=== PATIENT | male | born 1985 | race Caucasian/White ===

== ENCOUNTER → 2018-08-17 | Outpatient (CLI) | payer SELFPAY ==
[~2018-08-17] MED LIST: AMBI10TA OR; HUMALOG SC; INSULANT SC
[2018-08-17 15:37] LABS: ALBUMIN 3.6 GM/DL (3.2-5.2); ALT/SGPT 13 U/L (12-78); BILIRUBIN,TOTAL 0.2 MG/DL (0.2-1.0); BLOOD UREA NITROGEN 39 MG/DL (7-18); CARBON DIOXIDE LEVEL 30 MEQ/L (21-32); CHLORIDE LEVEL 103 MEQ/L (98-107); CREATININE FOR GFR 1.41 MG/DL (0.70-1.30); GLOMERULAR FILTRATION RATE > 60.0 (>60); GLUCOSE, FASTING 237 MG/DL (70-100); SODIUM LEVEL 137 MEQ/L (136-145); TOTAL PROTEIN 6.5 GM/DL (6.4-8.2)
[2018-08-17 15:41] LABS: HEMATOCRIT 30.5 % (42.0-52.0); HEMOGLOBIN 10.2 g/dl (13.5-17.5); MEAN CORPUSCULAR HEMOGLOBIN 28.3 pg (27.0-33.0); MEAN CORPUSCULAR HGB CONC 33.4 g/dl (32.0-36.5); MEAN CORPUSCULAR VOLUME 84.7 fl (80.0-96.0); PLATELET COUNT, AUTOMATED 208 10^3/uL (150-450); WHITE BLOOD COUNT 7.2 10^3/uL (4.0-10.0)
[2018-08-17 17:10] LABS: CHLAMYDIA DNA AMPLIFICATION NEGATIVE (NEGATIVE); GC DNA AMPLIFICATION NEGATIVE (NEGATIVE)
[2018-08-18 10:16] LABS: HEPATITIS B SURFACE ANTIGEN NEGATIVE (NEGATIVE)
[2018-08-18 10:44] LABS: HIV 1&2 SCREEN CENTAUR NEGATIVE (NEGATIVE)
== END ==
LOC: M WUC 11:58
PROVIDERS: ATTEND Family Medicine
DX: F11.20 Opioid dependence, uncomplicated (principal)

== ENCOUNTER 2019-01-02 16:43 | Emergency (ER) | payer OTHER ==
[~2019-01-02] VITALS: Ht 198.1 cm; Wt 81.8 kg
[2019-01-02] MEDS ORDERED: LISI-542 (16:50)
[2019-01-02] MEDS ORDERED: BASA100I (16:50)
[2019-01-02] MEDS ORDERED: METH10CO PO (16:50)
[2019-01-02] MEDS ORDERED: ADME100I (16:50)
[2019-01-02] MEDS ORDERED: ONDANSETRON 4MG/2ML VIAL (J2405) IV ONE (17:30)
[2019-01-02] MEDS ORDERED: PANTOPRAZOLE 40MG INJ (PROTONIX) (C9113) IV ONE (17:30)
[2019-01-02] MEDS ORDERED: NS 1,000 ML IV ONE ×2 (17:30→19:15)
[2019-01-02 17:57] LABS: BASO # 0.1 10^3/uL (0.0-0.2); BASO % 0.4 % (0.0-1.0); EOS % 0.2 % (0.0-3.0); HEMOGLOBIN 10.1 g/dl (13.5-17.5); LYMPH # 0.9 10^3/uL (1.5-4.5); LYMPH % 7.6 % (24.0-44.0); MEAN CORPUSCULAR HEMOGLOBIN 30.2 pg (27.0-33.0); MEAN CORPUSCULAR HGB CONC 33.7 g/dl (32.0-36.5); MEAN CORPUSCULAR VOLUME 89.8 fl (80.0-96.0); MONO # 0.8 10^3/uL (0.0-0.8); MONO % 6.4 % (0.0-5.0); NEUTROPHILS # 10.3 10^3/uL (1.8-7.7); NEUTROPHILS % 85.1 % (36.0-66.0); PLATELET COUNT, AUTOMATED 250 10^3/uL (150-450); RED BLOOD COUNT 3.34 10^6/uL (4.30-6.10); WHITE BLOOD COUNT 12.1 10^3/uL (4.0-10.0)
[2019-01-02 18:17] LABS: INR 1.05; PROTHROMBIN TIME 13.8 SECONDS (12.1-14.4)
[2019-01-02 18:26] LABS: ALBUMIN 3.6 GM/DL (3.2-5.2); BILIRUBIN,DIRECT 0.1 MG/DL (0.0-0.2); BILIRUBIN,TOTAL 0.3 MG/DL (0.2-1.0); CALCIUM LEVEL 9.3 MG/DL (8.5-10.1); CREATININE FOR GFR 1.98 MG/DL (0.70-1.30); GLOMERULAR FILTRATION RATE 41.6 (>60); POTASSIUM SERUM 4.8 MEQ/L (3.5-5.1)
[2019-01-02 18:40] LABS: VENOUS BASE EXCESS -2.6 (-2.0-2.0); VENOUS O2 SATURATION 96.9 % (60.0-80.0); VENOUS PARTIAL PRESSURE CO2 43.2 mmHg (38.0-50.0); VENOUS PARTIAL PRESSURE O2 96.7 mmHg (30.0-50.0); VENOUS PH 7.345 UNITS (7.330-7.430); VENOUS STANDARD HCO3 22.3 MEQ/L; VENOUS TOTAL CO2 24.4 MEQ/L (24.0-28.0)
[2019-01-02] MEDS ORDERED: HumuLIN R (REGULAR) INSULIN (NovoLIN R) **100U/ML** PER UNIT IV ONE (18:45)
[2019-01-02 18:51] LABS: ACETONE/KETONE 26.81 MG/DL (<2.81)
[2019-01-02] MEDS ORDERED: PROT1TAB2 PO (20:00)
[2019-01-02] MEDS ORDERED: ONDA4TAB6 PO (20:00)
[2019-01-02 20:01] LABS: APPEARANCE, URINE CLEAR (CLEAR); BACTERIA, URINE AUTO NEGATIVE (NEGATIVE); BILIRUBIN, URINE AUTO NEGATIVE (NEGATIVE); BLOOD, URINE BLOOD 1+ (NEGATIVE); COLOR, URINE YELLOW (YELLOW); GLUCOSE, URINE (UA) AUTO 3+ mg/dL (NEGATIVE); KETONE, URINE AUTO 1+ mg/dL (NEGATIVE); LEUKOCYTE ESTERASE, URINE AUTO NEGATIVE (NEGATIVE); NITRITE, URINE AUTO NEGATIVE (NEGATIVE); PROTEIN, URINE AUTO 2+ mg/dL (NEGATIVE); RBC, URINE AUTO 3 /HPF (0-3); SPECIFIC GRAVITY URINE AUTO 1.016 (1.002-1.035); SQUAMOUS EPITHELIAL CELL UR AU 0 /HPF (0-6); UROBILINOGEN, URINE AUTO 0.2 mg/dL (0.0-2.0); WBC, URINE AUTO 0 /HPF (0-3)
[2019-01-02 20:12] VITALS: BP 138/67
== END 2019-01-02 20:25 | disposition home or self-care (01) ==
LOC: M ED 16:43
DX: R11.2 Nausea with vomiting, unspecified (principal); D64.9 Anemia, unspecified; E10.9 Type 1 diabetes mellitus without complications; E86.0 Dehydration; Z72.0 Tobacco use; Z79.4 Long term (current) use of insulin; Z79.899 Other long term (current) drug therapy
CPT/HCPCS: 80048; 80076; 81001; 82010; 82803; 83690; 85025; 85610; 85730; 86850; 86900; 86901; 96374; 96375; 99284; C9113; J2405

== ENCOUNTER 2019-01-09 19:52 | Emergency (ER) | payer OTHER ==
[~2019-01-09] VITALS: Ht 198.1 cm; Wt 84.1 kg
[~2019-01-09 19:52] MED LIST changes: +ADME100I; +BASA100I; +LISI-542; +METH10CO PO; +ONDA4TAB6 PO; +PROT1TAB2 PO
[2019-01-09] MEDS: ONDANSETRON 4 MG ORAL DISINTEGRATING TAB (Q0162 PER 1MG) PO ONE ×2 (20:34→21:05)
[2019-01-09] MEDS ORDERED: ONDANSETRON 4MG/2ML VIAL (J2405) IV ONE (20:45)
[2019-01-09 20:58] LABS: BASO # 0.1 10^3/uL (0.0-0.2); BASO % 0.8 % (0.0-1.0); EOS # 0.4 10^3/uL (0.0-0.50); EOS % 4.2 % (0.0-3.0); HEMATOCRIT 31.7 % (42.0-52.0); HEMOGLOBIN 10.4 g/dl (13.5-17.5); LYMPH # 1.4 10^3/uL (1.5-4.5); LYMPH % 16.8 % (24.0-44.0); MEAN CORPUSCULAR HEMOGLOBIN 29.3 pg (27.0-33.0); MEAN CORPUSCULAR HGB CONC 32.8 g/dl (32.0-36.5); MEAN CORPUSCULAR VOLUME 89.3 fl (80.0-96.0); MONO # 0.5 10^3/uL (0.0-0.8); MONO % 5.5 % (0.0-5.0); NEUTROPHILS # 6.1 10^3/uL (1.8-7.7); NEUTROPHILS % 72.5 % (36.0-66.0); PLATELET COUNT, AUTOMATED 217 10^3/uL (150-450); RED BLOOD COUNT 3.55 10^6/uL (4.30-6.10); WHITE BLOOD COUNT 8.4 10^3/uL (4.0-10.0)
[2019-01-09 21:27] LABS: ALBUMIN 3.2 GM/DL (3.2-5.2); ALT/SGPT 15 U/L (12-78); BILIRUBIN,DIRECT 0.1 MG/DL (0.0-0.2); BILIRUBIN,TOTAL 0.3 MG/DL (0.2-1.0); BLOOD UREA NITROGEN 23 MG/DL (7-18); CARBON DIOXIDE LEVEL 29 MEQ/L (21-32); CHLORIDE LEVEL 106 MEQ/L (98-107); CREATININE FOR GFR 1.14 MG/DL (0.70-1.30); GLOMERULAR FILTRATION RATE > 60.0 (>60); GLUCOSE, FASTING 247 MG/DL (70-100); LIPASE 95 U/L (73-393); POTASSIUM SERUM 5.9 MEQ/L (3.5-5.1); SODIUM LEVEL 139 MEQ/L (136-145); TOTAL PROTEIN 6.6 GM/DL (6.4-8.2)
[2019-01-09] MEDS ORDERED: NS 1,000 ML IV ONE (21:45)
[2019-01-09 22:44] VITALS: BP 144/85
== END 2019-01-09 22:48 | disposition home or self-care (01) ==
LOC: M ED 19:52
DX: E10.40 Type 1 diabetes mellitus with diabetic neuropathy, unspecified (principal); R11.2 Nausea with vomiting, unspecified; D64.9 Anemia, unspecified; K27.9 Peptic ulcer, site unspecified, unspecified as acute or chronic, without hemorrhage or perforation; Z79.4 Long term (current) use of insulin; Z87.448 Personal history of other diseases of urinary system
CPT/HCPCS: 80048; 80076; 83690; 85025; 96374; 99284; J2405

== ENCOUNTER 2019-02-14 02:41 | Inpatient (IN) | payer OTHER ==
[~2019-02-14] VITALS: Ht 198.1 cm; Wt 81.9 kg
[2019-02-14] VITALS (15 sets, daily range): BP systolic 114–154; BP diastolic 60–89
[~2019-02-14 02:41] MED LIST changes: -ADME100I; +ADME100I SC; -BASA100I; +BASA100I PO; -LISI-542; +LISI-542 PO
[2019-02-14 04:38] LABS: BASO # 0.1 10^3/uL (0.0-0.2); BASO % 0.4 % (0.0-1.0); EOS % 0.2 % (0.0-3.0); HEMATOCRIT 29.4 % (42.0-52.0); HEMOGLOBIN 9.1 g/dl (13.5-17.5); LYMPH # 1.1 10^3/uL (1.5-4.5); MEAN CORPUSCULAR HEMOGLOBIN 29.1 pg (27.0-33.0); MEAN CORPUSCULAR VOLUME 93.9 fl (80.0-96.0); MONO % 10.3 % (0.0-5.0); NEUTROPHILS # 18.8 10^3/uL (1.8-7.7); PLATELET COUNT, AUTOMATED 208 10^3/uL (150-450); RED BLOOD COUNT 3.13 10^6/uL (4.30-6.10); WHITE BLOOD COUNT 22.6 10^3/uL (4.0-10.0)
[2019-02-14] MEDS ORDERED: NS 1,000 ML IV ONE (04:45)
[2019-02-14] MEDS ORDERED: HumuLIN R (REGULAR) INSULIN (NovoLIN R) **100U/ML** PER UNIT IV ONE (04:45)
[2019-02-14] MEDS ORDERED: SODIUM BICARBONATE 8.4% INJ 50 ML SYRINGE As Ordered ONE (04:51)
[2019-02-14 04:54] LABS: INR 1.12; PROTHROMBIN TIME 14.1 SECONDS (11.8-14.0)
[2019-02-14] MEDS ORDERED: METOPROLOL 5 MG/5 ML VIAL IV STA (04:55)
[2019-02-14] MEDS ORDERED: METOPROLOL 5 MG/5 ML VIAL As Ordered ONE (04:56)
[2019-02-14 04:57] LABS: MONO # 2.3 10^3/uL (0.0-0.8)
[2019-02-14] MEDS ORDERED: CALCIUM GLUCONATE 1,000MG/10ML VIAL (100MG/ML) (J0610) As Ordered ONE (04:58)
[2019-02-14 04:59] LABS: BLOOD UREA NITROGEN 39 MG/DL (7-18); CARBON DIOXIDE LEVEL 16 MEQ/L (21-32); CHLORIDE LEVEL 96 MEQ/L (98-107); CK-MB VALUE MASS 1.9 NG/ML (<3.6); CPK CREATINE PHOSPHOKINASE 201 U/L (39-308); CREATININE FOR GFR 2.07 MG/DL (0.70-1.30); GLOMERULAR FILTRATION RATE 39.6 (>60); GLUCOSE, FASTING 661 MG/DL (70-100); MB/CK RELATIVE INDEX 0.95 (< OR =4); POTASSIUM SERUM 7.5 MEQ/L (3.5-5.1); SODIUM LEVEL 132 MEQ/L (136-145); TROPONIN I < 0.02 NG/ML (< 0.10)
[2019-02-14] MEDS ORDERED: INSULIN IV RATE CHANGE DOCUMENTATION ML/HR XX SCH ×2 (05:15→05:45)
[2019-02-14] MEDS ORDERED: INSULIN HUMAN REGULAR 100 UNITS in NS 99 ML IV SCH ×4 (05:15→14:00)
[2019-02-14] MEDS ORDERED: ONDA4TAB6 PO (05:24)
[2019-02-14] MEDS ORDERED: PANT40TA3 PO (05:24)
[2019-02-14] MEDS ORDERED: PHARMACY COMMENT (05:25)
[2019-02-14] MEDS ORDERED: MAALOX 30 ML SUSP *UDC PO PRN (05:45)
[2019-02-14] MEDS ORDERED: SODIUM BICARBONATE 8.4% INJ 50 ML SYRINGE IV SCH (05:45)
[2019-02-14] MEDS ORDERED: MOM 30ML SUSPENSION UDC PO PRN (05:45)
[2019-02-14] MEDS ORDERED: ZOSYN 3.375 GM VIAL (J2543) As Ordered ONE (05:48)
[2019-02-14] MEDS: NS 1,000 ML IV SCH ×2 (05:54→08:58)
--- NOTE | 2019-02-14 05:56 | ECGEPIP ---
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
[2019-02-14] MEDS: PIPERACILLIN/TAZOBACTAM SOD 3.375 GM in D5W MINI-BAG PLUS 50 ML IV SCH ×3 (05:58→17:50)
--- NOTE | 2019-02-14 06:02 | ECGEPIP ---
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
--- NOTE | 2019-02-14 06:10 | HPEPDOC ---
General Date of Admission 02/14/19 Date of Service: Feb 14, 2019 Attending Physician: FADIA LEE MD Chief Complaint The patient is a 33-year-old male admitted with a reason for visit of chest pain . Source: RN/MD Exam Limitations: Clinical conditions Timing/Duration: Unsure Severity: Other (unsure) Associated Symptoms: Nausea, Other (chest pain) History of Present Illness 33 years old white male with past medical history of insulin-dependent diabetes mellitus, also history of opiate addiction and methadone presented to [facility] with chief complaint of chest pain, nausea and vomiting. Patient was agitated, had tremors tachycardic. He was seen there, but just been given to 3 L of fluid, but patient decided to leave AMA and come here for this. He was not satisfied with the care. Patient right now is lethargic, unable to provide me history. He drifts back to sleep only arousable with with the tactile stimuli. I'm unable to obtain history, social history was obtained from ED and EMR. Home Medications Scheduled Insulin Glargine,Hum.rec.anlog (Basaglar Kwikpen U-100) 100 Unit/1 Ml Insuln.pen, 14 UNITS PO QHS, (Reported) Insulin Lispro (Admelog) 100 Unit/1 Ml Vial, 1 DOSE SC WM, (Reported) PER SLIDING SCALE Lisinopril (Lisinopril) 5 Mg Tablet, 5 MG PO DAILY, (Reported) Methadone HCl (Methadone HCl) 10 Mg/1 Ml Oral.conc, 115 MG PO DAILY, (Reported) Pantoprazole Sodium (Pantoprazole Sodium) 40 Mg Tablet.dr, 40 MG PO DAILY, (Reported) Scheduled PRN Ondansetron (Ondansetron Odt) 4 Mg Tab.rapdis, 4 MG PO Q6H PRN for NAUSEA OR VOMITING, (Reported) Miscellaneous Medications [Pharmacy Comment] , (Reported) VERIFIED ALL MEDICATIONS WITH PHARMACY EXCEPT METHADONE Allergies Coded Allergies: No Known Allergies (Verified , 10/07/11) Past Medical History Medical History Diabetes mellitus padded addiction and methadone, diabetic neuropathy, gastroparesis, status post silent pilonidal cyst removal, status post appendectomy Surgical History Status post pilonidal cyst removal, status post appendectomy Family History Significant Family History: Unable to assess Social History * Smoker: other (unable to obtained history) Alcohol: other (, unable to obtained history) Drugs: other (unable History obtained history) A-FIB/CHADSVASC A-FIB History Current/History of A-Fib/PAF?: No Review of Systems Constitutional: Reports: Other (unable to obtained review of system is better as patient is very lethargic secondary to DKA) Physical Examination General Exam: Positive: Other (, lethargic response to act Leon stimuli, but drifts back to sleep) Eye Exam: Positive: Conjunctiva & lids normal ENT Exam: Positive: Atraumatic, Mucous membr. moist/pink Neck Exam: Positive: Supple Chest Exam: Positive: Clear to auscultation, Normal air movement Heart Exam: Positive: Tachycardic, Normal S1, Normal S2 Telemetry: Positive: Tachycardia Abdomen Exam: Positive: Normal bowel sounds, Soft Extremity Exam: Positive: Normal pulses Skin Exam: Positive: Other skin issue (, dry, and warm) Neuro Exam: Positive: Other (. Moves all extremities. No focal motor sensory motor facet noted) Psych Exam: Positive: Other (able to examine) Vital Signs Vital Signs Date Time Temp Pulse Resp B/P (MAP) Pulse Ox O2 Delivery O2 Flow Rate FiO2 02/14/19 05:35 116/59 (78) 02/14/19 05:25 109 18 97 02/14/19 05:22 99.8 02/14/19 05:10 Room Air Laboratory Data Labs 24H Laboratory Tests 2 02/14/19 04:22: Immature Granulocyte % (Auto) 1.1, White Blood Count 22.6H, Red Blood Count 3.13L, Hemoglobin 9.1L, Hematocrit 29.4L, Mean Corpuscular Volume 93.9, Mean Corpuscular Hemoglobin 29.1, Mean Corpuscular Hemoglobin Concent 31.0L, Red Cell Distribution Width 13.1, Platelet Count 208, Neutrophils (%) (Auto) 83.0H, Lymphocytes (%) (Auto) 5.0L, Monocytes (%) (Auto) 10.3H, Eosinophils (%) (Auto) 0.2, Basophils (%) (Auto) 0.4, Neutrophils # (Auto) 18.8H, Lymphocytes # (Auto) 1.1L, Monocytes # (Auto) 2.3H, Eosinophils # (Auto) 0.0, Basophils # (Auto) 0.1, Nucleated Red Blood Cells % (auto) 0.0, Prothrombin Time 14.1H, Prothromb Time International Ratio 1.12, Activated Partial Thromboplast Time 27.0, Anion Gap 20H, Glomerular Filtration Rate 39.6L, Blood Urea Nitrogen 39H, Creatinine 2.07H, Sodium Level 132L, Potassium Level 7.5*H, Chloride Level 96L, Carbon Dioxide Level 16L, Calcium Level 10.0, Total Creatine Kinase 201, Creatine Kinase MB 1.9, Creatine Kinase MB Relative Index 0.95, Troponin I < 0.02, B- Hydroxybutyrate 28.30H 02/14/19 04:59: POC Glucose (Misc Panel) > 700*H, POC Sodium (Misc Panel) 130L, POC Potassium (Misc Panel) 7.0*H, POC Chloride (Misc Panel) 99, POC Total CO2 (Misc Panel) 17.0L, POC Blood Urea Nitrogen (Misc Panel 36H, POC Ionized Calcium (Misc Panel) 4.4L, POC Creatinine (Misc Panel) 1.6H, POC Hematocrit (Misc Panel) 26.0L CBC/BMP Laboratory Tests 02/14/19 04:22 Red Blood Count 3.13 L, Mean Corpuscular Volume 93.9, Mean Corpuscular Hemoglobin 29.1, Mean Corpuscular Hemoglobin Concent 31.0 L, Red Cell Distribution Width 13.1, Neutrophils (%) (Auto) 83.0 H, Lymphocytes (%) (Auto) 5.0 L, Monocytes (%) (Auto) 10.3 H, Eosinophils (%) (Auto) 0.2, Basophils (%) (Auto) 0.4, Neutrophils # (Auto) 18.8 H, Lymphocytes # (Auto) 1.1 L, Monocytes # (Auto) 2.3 H, Eosinophils # (Auto) 0.0, Basophils # (Auto) 0.1, Calcium Level 10.0, Total Creatine Kinase 201 Problems (1) DKA (diabetic ketoacidoses) Status: Acute Problem Text: 33 years old white male with past medical history of diabetes mellitus type 1, had presented to [facility] with chief complaints of tremors, tachycardia, nausea, vomiting, chest pain, but he decided to sign AMA and came here again. He was found to found to be any DKA with beta hydroxy more than 28, with positive widened anion gap and a high serum glucose level. Patient also was found to have a WBC count of 22,000 and his potassium is 7.5 as well Patient is being admitted to ICU with DKA. Hyperkalemia secondary to DKA, possible sepsis, most likely urinary in origin. UA is not available at the present time, but chest x-ray is clear. There is no pneumonia. EKG showed sinus tachycardia with TED peaking in edition in initial EKG EKG and chest x-ray were personally reviewed by me Admitted to medical ICU with telemetry IV fluids normal saline at 250 mL per hour Will change IV fluids. Once his blood sugar trending down Also supplement the electrolytes as needed including potassium and phosphate Insulin infusion as per protocol in order , Bicarbonate 100 mg IV 1 given Zosyn 3.375 mg IV every 6 hours Zofran 4 mg IV every 4 hours when necessary BNP, magnesium and phosphate levels every 4 hours Vital signs every 4 hours Strict I and O's Nothing by mouth DVT prophylaxis with Lovenox Activity bed rest with bathroom privileges (2) Sepsis Status: Acute Problem Text: Patient. As affected areas of sepsis secondary to tachypnea, tachycardia and elevated WBC count Chest x-ray is clear, but most likely source could be urinary but unfortunately UA is still pending Please follow urine analysis. Once is available Urine culturesblood cultures have been requested Start Zosyn 3.375 mg IV every 6 hours his empiric antibiotic treatment Further on pending blood cultures and urine culture and UA. Study (3) Hyperkalemia Status: Acute Problem Text: Hyperkalemia, most likely secondary to DKA, will not try to reverse it as most likely will go down with the blood sugar as patient is already on an insulin drip BNP every 4 hours has been ordered. EKG shows normal sinus rhythm, no acute changes on the repeat EKG (4) Dehydration Status: Acute Problem Text: Dehydration, most likely secondary to most probably secondary to volume loss secondary to DKA IV hydration with normal saline 250 mL per hour IV fluids will be changed once patient. Blood sugar starts trending down (5) RAMOS (acute kidney injury) Status: Acute Problem Text: Most likely secondary to DKA Monitor BUN/creatinine Repeat BNP in 4 hours (6) Anemia Status: Acute Problem Text: History of chronic anemia of unknown etiology The monitoring his hemoglobin and hematocrit while he is admitted to the hospital Outpatient records to further evaluate the workup done as an outpatient for his anemia (7) Diabetic gastroparesis Status: Chronic (8) Diabetic neuropathy Status: Chronic Plan / VTE VTE Prophylaxis Ordered?: Yes FADIA LEE MD Feb 14, 2019 06:10
--- NOTE | 2019-02-14 07:54 | REP ---
Portable chest, 04:25 a.m., single AP view with the patient upright: Comparison is 10/07/2011. The lung menezes are clear. The cardiac size is normal. The huong, mediastinum, and skeletal structures are unremarkable. Impression: Negative portable chest. There is no interval change. Electronically Signed by Galdino Garcia MD 02/14/2019 07:26 A
[2019-02-14] MEDS: PANTOPRAZOLE 40MG INJ (PROTONIX) (C9113) IV SCH (08:25)
[2019-02-14] MEDS: ACETAMINOPHEN TAB 650MG DOSE (2X325MG) PO PRN ×2 (08:57→21:07)
[2019-02-14] MEDS: DOCUSATE SODIUM 100 MG CAP PO SCH ×2 (09:00→20:08)
[2019-02-14] MEDS: ENOXAPARIN 40 MG/0.4 ML SYRINGE (J1650) SC SCH (09:00)
[2019-02-14] MEDS: LISINOPRIL 5 MG TAB PO SCH (09:00)
[2019-02-14] MEDS: INSULIN IV RATE CHANGE DOCUMENTATION ML/HR XX SCH ×3 (09:01→21:12)
[2019-02-14] MEDS: D5W/0.45% SODIUM CHLORIDE 1,000 ML IV SCH ×2 (12:13→20:08)
[2019-02-14] MEDS ORDERED: CALCIUM CHLORIDE 10% 1 GM/10 ML SYR ONE (14:27)
[2019-02-14 15:00] LABS: CALCIUM LEVEL 9.7 MG/DL (8.5-10.1); CREATININE FOR GFR 1.54 MG/DL (0.70-1.30); GLOMERULAR FILTRATION RATE 55.7 (>60); PHOSPHORUS LEVEL 3.8 MG/DL (2.5-4.9); POTASSIUM SERUM 4.8 MEQ/L (3.5-5.1)
[2019-02-14] MEDS: ONDANSETRON 4MG/2ML VIAL (J2405) IV PRN (15:29)
[2019-02-14 16:05] LABS: VENOUS BASE EXCESS 0.2 (-2.0-2.0); VENOUS HCO3 24.6 MEQ/L (23.0-27.0); VENOUS O2 SATURATION 98.9 % (60.0-80.0); VENOUS PARTIAL PRESSURE CO2 38.5 mmHg (38.0-50.0); VENOUS PARTIAL PRESSURE O2 185.9 mmHg (30.0-50.0); VENOUS PH 7.423 UNITS (7.330-7.430); VENOUS STANDARD HCO3 24.7 MEQ/L; VENOUS TOTAL CO2 25.8 MEQ/L (24.0-28.0)
--- NOTE | 2019-02-14 16:17 | IPNPDOC ---
Text Note Date of Service The patient was seen on 02/14/19. NOTE Pt seen and examined at bedside. Patient not feeling well complaining of nausea, vomiting. Denies fevers, chills, chest pain, difficulty breathing, abdominal pain, leg pain or swelling. potassium down to 4.8 from 7.5. AGAP closed. Creatinine 1.54 from 2.07. laying in bed, NAD, uncomfortable appearing, family at bedside PERRL, EOMI, poor dentition with many teeth missing RRR, nl s1/2 +systolic murmur CTA b/l no w/r/r soft, mild TTP, ND intact distal pulses, no edema A/P: 33 y/o m with DKA #DKA Admitted to medical ICU with telemetry IV fluids d5 1/2NS at 125 mL per hour Also supplement the electrolytes as needed including potassium and phosphate Insulin infusion as per protocol in order s/p Bicarbonate 100 mg IV 1 given Zosyn 3.375 mg IV every 6 hours Zofran 4 mg IV every 4 hours when necessary BMP, magnesium and phosphate levels every 4 hours Vital signs every 4 hours Strict I and O's Nothing by mouth DVT prophylaxis with Lovenox Activity bed rest with bathroom privileges #Sepsis UA clear with no e/o infection CXR clear with no e/o infection Blood cultures pending cont. Zosyn 3.375 mg IV every 6 hours for empiric antibiotic treatment with plan to stop if blood cultures [id number] #Hyperkalemia - RESOLVED -will cont. to trend BMP for K #Dehydration IV hydration with D5 1/2NS @125 mL per hour #RAMOS (acute kidney injury) Monitor BUN/creatinine currently improving Repeat BMP q4 hours #Anemia The monitoring his hemoglobin and hematocrit while he is admitted to the hospital Outpatient records to further evaluate the workup done as an outpatient for his anemia #Diabetic gastroparesis -will cont. to monitor #Diabetic neuropathy -will cont to monitor #chronic methadone use -pt follows at [facility] for chronic methadone maintenance -will confirm dose with [facility] (per pt he takes 125mg daily but didn't have his methadone card) DVT PPX: lovenox Disposition: currently requiring ICU level care Critical care time spent: 25min in additional to any other critical care time documented VS,Fishbone, I+O VS, Fishbone, I+O Laboratory Tests 02/14/19 04:22 Red Blood Count 3.13 L, Mean Corpuscular Volume 93.9, Mean Corpuscular Hemoglobin 29.1, Mean Corpuscular Hemoglobin Concent 31.0 L, Red Cell Distribution Width 13.1, Neutrophils (%) (Auto) 83.0 H, Lymphocytes (%) (Auto) 5.0 L, Monocytes (%) (Auto) 10.3 H, Eosinophils (%) (Auto) 0.2, Basophils (%) (Auto) 0.4, Neutrophils # (Auto) 18.8 H, Lymphocytes # (Auto) 1.1 L, Monocytes # (Auto) 2.3 H, Eosinophils # (Auto) 0.0, Basophils # (Auto) 0.1, Calcium Level 10.0, Total Creatine Kinase 201 02/14/19 13:19 Calcium Level 9.7 Vital Signs Date Time Temp Pulse Resp B/P (MAP) Pulse Ox O2 Delivery O2 Flow Rate FiO2 02/14/19 13:00 89 138/70 (92) 98 02/14/19 12:00 100.0 12 02/14/19 09:45 Room Air JAZMINE ANN MD Feb 14, 2019 16:17
[2019-02-14 18:06] LABS: VENOUS BASE EXCESS 0.9 (-2.0-2.0); VENOUS HCO3 25.1 MEQ/L (23.0-27.0); VENOUS O2 SATURATION 98.9 % (60.0-80.0); VENOUS PARTIAL PRESSURE CO2 38.2 mmHg (38.0-50.0); VENOUS PARTIAL PRESSURE O2 179.5 mmHg (30.0-50.0); VENOUS PH 7.435 UNITS (7.330-7.430); VENOUS STANDARD HCO3 25.3 MEQ/L; VENOUS TOTAL CO2 26.2 MEQ/L (24.0-28.0)
[2019-02-14 18:34] LABS: CALCIUM LEVEL 9.6 MG/DL (8.5-10.1); CREATININE FOR GFR 1.48 MG/DL (0.70-1.30); GLOMERULAR FILTRATION RATE 58.3 (>60); PHOSPHORUS LEVEL 3.9 MG/DL (2.5-4.9); POTASSIUM SERUM 4.7 MEQ/L (3.5-5.1)
[2019-02-14] MEDS: HumaLOG INSULIN (NovoLOG) PER UNIT SC SCH (21:00)
[2019-02-14] MEDS ORDERED: GLUCAGON FOR INJ 1 MG VIAL (J1610) SC PRN (21:00)
[2019-02-14] MEDS ORDERED: GLUCOSE 4 GM CHEW TABLET PO PRN (21:00)
[2019-02-14] MEDS ORDERED: DEXTROSE 50% 50 ML SYRINGE IV PRN (21:00)
[2019-02-14] MEDS: LEVEMIR (INSULIN DETEMIR) 1 UNITS/0.01ML SC SCH (21:05)
[2019-02-14 21:48] LABS: VENOUS BASE EXCESS -0.3 (-2.0-2.0); VENOUS HCO3 23.8 MEQ/L (23.0-27.0); VENOUS O2 SATURATION 99.1 % (60.0-80.0); VENOUS PARTIAL PRESSURE CO2 36.6 mmHg (38.0-50.0); VENOUS PARTIAL PRESSURE O2 209.4 mmHg (30.0-50.0); VENOUS PH 7.431 UNITS (7.330-7.430); VENOUS STANDARD HCO3 24.3 MEQ/L; VENOUS TOTAL CO2 24.9 MEQ/L (24.0-28.0)
[2019-02-14 22:03] LABS: CALCIUM LEVEL 8.8 MG/DL (8.5-10.1); CREATININE FOR GFR 1.59 MG/DL (0.70-1.30); GLOMERULAR FILTRATION RATE 53.6 (>60); PHOSPHORUS LEVEL 3.4 MG/DL (2.5-4.9); POTASSIUM SERUM 4.3 MEQ/L (3.5-5.1)
[2019-02-15] VITALS (7 sets, daily range): BP systolic 142–175; BP diastolic 78–96
[2019-02-15] MEDS: PIPERACILLIN/TAZOBACTAM SOD 3.375 GM in D5W MINI-BAG PLUS 50 ML IV SCH ×5 (00:38→23:40)
[2019-02-15] MEDS: ONDANSETRON 4MG/2ML VIAL (J2405) IV PRN ×4 (01:00→15:47)
[2019-02-15] MEDS: ACETAMINOPHEN TAB 650MG DOSE (2X325MG) PO PRN ×3 (04:53→21:36)
[2019-02-15 05:02] LABS: HEMATOCRIT 25.6 % (42.0-52.0); HEMOGLOBIN 8.4 g/dl (13.5-17.5); MEAN CORPUSCULAR HEMOGLOBIN 28.8 pg (27.0-33.0); MEAN CORPUSCULAR HGB CONC 32.8 g/dl (32.0-36.5); MEAN CORPUSCULAR VOLUME 87.7 fl (80.0-96.0); PLATELET COUNT, AUTOMATED 183 10^3/uL (150-450); RED BLOOD COUNT 2.92 10^6/uL (4.30-6.10); WHITE BLOOD COUNT 13.1 10^3/uL (4.0-10.0)
[2019-02-15 05:27] LABS: ALBUMIN 2.9 GM/DL (3.2-5.2); BILIRUBIN,TOTAL 0.4 MG/DL (0.2-1.0); CALCIUM LEVEL 8.8 MG/DL (8.5-10.1); CREATININE FOR GFR 1.46 MG/DL (0.70-1.30); GLOMERULAR FILTRATION RATE 59.2 (>60); MAGNESIUM LEVEL 1.7 MG/DL (1.8-2.4); PHOSPHORUS LEVEL 3.8 MG/DL (2.5-4.9); POTASSIUM SERUM 4.1 MEQ/L (3.5-5.1); TOTAL PROTEIN 6.1 GM/DL (6.4-8.2)
[2019-02-15] MEDS: HumaLOG INSULIN (NovoLOG) PER UNIT SC SCH ×4 (07:30→20:36)
[2019-02-15] MEDS ORDERED: MAG SULF 1GM/100ML (MAG RUN) 1 GM in APPROPRIATE DILUENT 1 EA IV ONE (08:00)
[2019-02-15] MEDS: ENOXAPARIN 40 MG/0.4 ML SYRINGE (J1650) SC SCH (08:13)
[2019-02-15] MEDS: PANTOPRAZOLE 40MG INJ (PROTONIX) (C9113) IV SCH (08:13)
[2019-02-15] MEDS: DOCUSATE SODIUM 100 MG CAP PO SCH ×2 (09:00→20:37)
--- NOTE | 2019-02-15 10:26 | IPNPDOC ---
Subjective Date Seen The patient was seen on 02/15/19. Subjective Chief Complaint/HPI Follow-up DKA Events since last encounter Patient seen and examined at bedside. Patient complains of nausea, vomiting, ab pain, feeling tired and generally unwell. Patient denies fevers, chills, chest pain, difficulty breathing, leg pain or swelling. Patient did not tolerate diet last night, but will try again this morning. Objective Physical Examination General Exam: Positive: Alert, Cooperative, No Acute Distress Chest Exam: Positive: Clear to auscultation, Normal air movement Heart Exam: Positive: Rate Normal, Normal S1, Normal S2 Abdomen Exam: Positive: Normal bowel sounds, Soft, Tenderness (minimal tenderness to deep palpation) Extremity Exam: Positive: Normal pulses; Negative: Edema Skin Exam: Positive: Other skin issue (, dry, and warm); Negative: Rash, Breakdown Neuro Exam: Positive: Other (no focal deficits appreciated) Psych Exam: Positive: Mental status NL, Mood NL, Oriented x 3 Assessment /Plan Assessment 33 years old white male with past medical history of insulin-dependent diabetes mellitus type I, also history of opiate addiction and methadone presented initially to OSH with N/V and chest pain. Pt received 3L and then left AMA and presented to [facility] with lethargy. Found to be in DKA with AGAP 20, +ketones. Pt started on insulin drip per DKA protocal. Pt also started on zosyn for concern for infection given elevated WBC, tachycardia. CXR clear as well as clear UA. Blood cultures no growth to date. Currently attempting to transition pt to Sub Q insulin but pt unable to tolerate PO intake currently. On presentation pt also with elevated K to 7.5 which resolved with fluids and insulin. Problems (1) DKA (diabetic ketoacidoses) Status: Acute Problem Text: Admitted to medical ICU with telemetry IV fluids d5 1/2NS at 125 mL per hour Also supplement the electrolytes as needed including potassium and phosphate Insulin infusion as per protocol in order will attempt to transition off insulin drip once pt tolerating PO intake s/p Bicarbonate 100 mg IV 1 given cont. Zosyn 3.375 mg IV every 6 hours as pt febrile today Zofran 4 mg IV every 4 hours when necessary BMP, magnesium and phosphate levels every 4 hours Vital signs every 4 hours Strict I and O's advance diet as tolerated DVT prophylaxis with Lovenox Activity bed rest with bathroom privileges (2) Sepsis Status: Acute Problem Text: UA clear with no e/o infection CXR clear with no e/o infection Blood cultures NGTD cont. Zosyn 3.375 mg IV every 6 hours for empiric antibiotic treatment with plan to stop if blood cultures [id number] will cont. to monitor as pt spiked fever today (3) Hyperkalemia Status: Resolved Problem Text: RESOLVED will cont. to monitor (4) Dehydration Status: Acute Problem Text: Dehydration, most likely secondary to most probably secondary to volume loss secondary to DKA IV hydration with normal saline 250 mL per hour IV fluids will be changed once patient. Blood sugar starts trending down (5) RAMOS (acute kidney injury) Status: Acute Problem Text: Most likely secondary to DKA Monitor BUN/creatinine Repeat BNP in 4 hours Creatinine improving but may be an element of underlying diabetic nephropathy (6) Anemia Status: Acute Problem Text: History of chronic anemia of unknown etiology The monitoring his hemoglobin and hematocrit while he is admitted to the hospital (7) Diabetic gastroparesis Status: Chronic Problem Text: -will cont. to monitor (8) Diabetic neuropathy Status: Chronic Problem Text: will cont. to monitor Plan/VTE VTE Prophylaxis Ordered?: Yes Disposition pending clinical improvement and pt tolerating PO diet VS, I&O, 24H, Fishbone Vital Signs/I&O Vital Signs Date Time Temp Pulse Resp B/P (MAP) Pulse Ox O2 Delivery O2 Flow Rate FiO2 02/15/19 08:00 101.0 90 18 161/79 (106) 99 02/14/19 09:45 Room Air I&O- Last 24 Hours up to 6 AM 02/15/19 05:59 Intake Total 2839.7 ml Output Total 1800 ml Balance 1039.7 ml Laboratory Data 24H LABS Laboratory Tests 2 02/14/19 10:23: Bedside Glucose (Misc Panel) 150H 02/14/19 11:05: Bedside Glucose (Misc Panel) 125H 02/14/19 12:10: Bedside Glucose (Misc Panel) 128H 02/14/19 13:19: Anion Gap 6L, Glomerular Filtration Rate 55.7L, Blood Urea Nitrogen 34H, Creatinine 1.54H, Sodium Level 143#, Potassium Level 4.8#, Chloride Level 109H, Carbon Dioxide Level 28, Calcium Level 9.7, Phosphorus Level 3.8 7/29/19 13:20: Bedside Glucose (Misc Panel) 130H 02/14/19 14:13: Bedside Glucose (Misc Panel) 157H 02/14/19 15:32: Bedside Glucose (Misc Panel) 155H 02/14/19 15:55: Blood Gas Puncture Site UNKNOWN, Blood Gas Bicarbonate Standard 24.7, Venous Blood pH 7.423, Venous Blood Partial Pressure CO2 38.5, Venous Blood Partial Pressure O2 185.9H, Venous Blood Total Carbon Dioxide 25.8, Venous Blood HCO3 24.6, Venous Blood Oxygen Saturation 98.9H, Venous Blood Base Excess 0.2, Osmolality 308H 02/14/19 16:14: Bedside Glucose (Misc Panel) 157H 02/14/19 17:04: Bedside Glucose (Misc Panel) 149H 02/14/19 17:59: Bedside Glucose (Misc Panel) 148H 02/14/19 18:00: Blood Gas Bicarbonate Standard 25.3, Venous Blood pH 7.435H, Venous Blood Partial Pressure CO2 38.2, Venous Blood Partial Pressure O2 179.5H, Venous Blood Total Carbon Dioxide 26.2, Venous Blood HCO3 25.1, Venous Blood Oxygen Saturat ion 98.9H, Venous Blood Base Excess 0.9, Anion Gap 8, Glomerular Filtration Rate 58.3L, Blood Urea Nitrogen 29H, Creatinine 1.48H, Sodium Level 144, Potassium Level 4.7, Chloride Level 110H, Carbon Dioxide Level 26, Calcium Level 9.6, Phosphorus Level 3.9 02/14/19 19:12: Bedside Glucose (Misc Panel) 180H 02/14/19 20:04: Bedside Glucose (Misc Panel) 209H 02/14/19 21:07: Bedside Glucose (Misc Panel) 165H 02/14/19 21:30: Blood Gas Bicarbonate Standard 24.3, Venous Blood pH 7.431H, Venous Blood Partial Pressure CO2 36.6L, Venous Blood Partial Pressure O2 209.4H, Venous Blood Total Carbon Dioxide 24.9, Venous Blood HCO3 23.8, Venous Blood Oxygen Saturation 99.1H, Venous Blood Base Excess -0.3, Anion Gap 6L, Glomerular Filtration Rate 53.6L, Osmolality 299H, Blood Urea Nitrogen 29H, Creatinine 1.59H, Sodium Level 144, Potassium Level 4.3, Chloride Level 110H, Carbon Dioxide Level 28, Calcium Level 8.8, Phosphorus Level 3.4 02/15/19 00:43: Bedside Glucose (Misc Panel) 95 02/15/19 04:45: Nucleated Red Blood Cells % (auto) 0.0, Anion Gap 5L, Glomerular Filtration Rate 59.2L, Osmolality 298H, Blood Urea Nitrogen 24H, Creatinine 1.46H, Sodium Level 146H, Potassium Level 4.1, Chloride Level 111H, Carbon Dioxide Level 30, Calcium Level 8.8, Phosphorus Level 3.8, Aspartate Amino Transf (AST/SGOT) 14, Alanine Aminotransferase (ALT/SGPT) 8L, Alkaline Phosphatase 65, Total Bilirubin 0.4, Total Protein 6.1L, Albumin 2.9L, Magnesium Level 1.7L, Albumin/Globulin Ratio 0.91L, B-Hydroxybutyrate 1.82 02/15/19 05:37: Bedside Glucose (Misc Panel) 58L 02/15/19 06:03: Bedside Glucose (Misc Panel) 71 02/15/19 07:19: Bedside Glucose (Misc Panel) 93 CBC/BMP Laboratory Tests 02/14/19 13:19 Calcium Level 9.7 02/14/19 18:00 Calcium Level 9.6 02/14/19 21:30 Calcium Level 8.8 02/15/19 04:45 Calcium Level 8.8, Red Blood Count 2.92 L, Mean Corpuscular Volume 87.7, Mean Corpuscular Hemoglobin 28.8, Mean Corpuscular Hemoglobin Concent 32.8, Red Cell Distribution Width 13.2, Phosphorus Level 3.8, Aspartate Amino Transf (AST/SGOT) 14, Alanine Aminotransferase (ALT/SGPT) 8 L, Alkaline Phosphatase 65, Total Bilirubin 0.4, Total Protein 6.1 L, Albumin 2.9 L Microbiology Microbiology 02/14/19 Blood Culture - Preliminary, Resulted No growth after 24 hours . All specim... JAZMINE ANN MD Feb 15, 2019 10:26
[2019-02-15] MEDS: LISINOPRIL 5 MG TAB PO SCH (11:19)
[2019-02-15] MEDS: METOCLOPRAMIDE INJ 10MG/2ML VIAL (J2765) IV SCH ×2 (17:25→20:35)
[2019-02-15] MEDS: METHADONE 10 MG TAB (S0109) PO SCH (17:32)
[2019-02-15] MEDS: LEVEMIR (INSULIN DETEMIR) 1 UNITS/0.01ML SC SCH (20:36)
[2019-02-16] VITALS: BP 156/83
[2019-02-16 04:00] VITALS: BP 174/102
--- NOTE | 2019-02-16 05:04 | IPNPDOC ---
Text Note Date of Service The patient was seen on 02/16/19. NOTE lisinopril stopped because of RAMOS and started on amlodipine VS,Fishbone, I+O VS, Fishbone, I+O Vital Signs Date Time Temp Pulse Resp B/P (MAP) Pulse Ox O2 Delivery O2 Flow Rate FiO2 02/16/19 00:00 99.7 77 19 156/83 (107) 97 02/14/19 09:45 Room Air I&O- Last 24 Hours up to 6 AM 02/16/19 06:00 Intake Total 1840 ml Output Total 2450 ml Balance -610 ml BRAYAN HAWLEY MD Feb 16, 2019 05:04
[2019-02-16 05:05] LABS: HEMATOCRIT 26.8 % (42.0-52.0); MEAN CORPUSCULAR HEMOGLOBIN 29.1 pg (27.0-33.0); MEAN CORPUSCULAR HGB CONC 33.6 g/dl (32.0-36.5); MEAN CORPUSCULAR VOLUME 86.7 fl (80.0-96.0); PLATELET COUNT, AUTOMATED 183 10^3/uL (150-450); RED BLOOD COUNT 3.09 10^6/uL (4.30-6.10)
[2019-02-16] MEDS: amLODIPine 10 MG TAB PO SCH (05:15)
[2019-02-16] MEDS: PIPERACILLIN/TAZOBACTAM SOD 3.375 GM in D5W MINI-BAG PLUS 50 ML IV SCH ×3 (05:16→17:29)
[2019-02-16 05:25] LABS: BLOOD UREA NITROGEN 18 MG/DL (7-18); CALCIUM LEVEL 8.6 MG/DL (8.5-10.1); CARBON DIOXIDE LEVEL 33 MEQ/L (21-32); CHLORIDE LEVEL 106 MEQ/L (98-107); GLOMERULAR FILTRATION RATE > 60.0 (>60); GLUCOSE, FASTING 199 MG/DL (70-100); SODIUM LEVEL 141 MEQ/L (136-145)
[2019-02-16 05:39] LABS: HEMOGLOBIN A1c 8.6 %
[2019-02-16] MEDS: HumaLOG INSULIN (NovoLOG) PER UNIT SC SCH ×4 (07:30→20:47)
[2019-02-16] MEDS: METOCLOPRAMIDE INJ 10MG/2ML VIAL (J2765) IV SCH ×4 (07:30→20:46)
[2019-02-16] MEDS: ACETAMINOPHEN TAB 650MG DOSE (2X325MG) PO PRN (07:35)
[2019-02-16 08:00] VITALS: BP 164/91
[2019-02-16] MEDS: ENOXAPARIN 40 MG/0.4 ML SYRINGE (J1650) SC SCH (09:00)
[2019-02-16] MEDS: DOCUSATE SODIUM 100 MG CAP PO SCH ×2 (09:00→20:46)
[2019-02-16 12:00] VITALS: BP 164/91
[2019-02-16] MEDS: METHADONE 10 MG TAB (S0109) PO SCH (12:40)
--- NOTE | 2019-02-16 13:30 | IPNPDOC ---
Subjective Date Seen The patient was seen on 02/16/19. Subjective Chief Complaint/HPI Follow-up DKA Events since last encounter Patient seen and examined at bedside. Patient feeling better today. Decreased na usea and vomiting. Patient denies chills, chest pain, difficulty breathing, abdominal pain, leg pain or swelling. Objective Physical Examination General Exam: Positive: Alert, Cooperative, No Acute Distress Chest Exam: Positive: Clear to auscultation, Normal air movement Heart Exam: Positive: Rate Normal, Normal S1, Normal S2 Abdomen Exam: Positive: Normal bowel sounds, Soft, Tenderness (minimal tenderness to deep palpation) Extremity Exam: Positive: Normal pulses; Negative: Edema Skin Exam: Positive: Nl turgor and temperature; Negative: Rash, Breakdown Neuro Exam: Positive: Other (no focal deficits appreciated) Psych Exam: Positive: Mental status NL, Oriented x 3, Other (depressed mood) Assessment /Plan Assessment 33 years old white male with past medical history of insulin-dependent diabetes mellitus type I, also history of opiate addiction and methadone presented initially to OSH with N/V and chest pain. Pt received 3L and then left AMA and presented to [facility] with lethargy. Found to be in DKA with AGAP 20, +ketones. Pt started on insulin drip per DKA protocal. Pt also started on zosyn for concern for infection given elevated WBC, tachycardia. CXR clear as well as clear UA. Blood cultures no growth to date. Pt transitioned to sub Q insulin but not eating consistently due to ongoing N/V. On presentation pt also with elevated K to 7.5 which resolved with fluids and insulin. Pt states he's feeling better but still with some fever and N/V. Suspect possible viral etiology for ongoing fever, N/V vs. gastroparesis. Will cont. zosyn given fevers and resolving white count. N/V improving with reglan. Problems (1) DKA (diabetic ketoacidoses) Status: Acute Problem Text: Admitted to medical ICU with telemetry Also supplement the electrolytes as needed including potassium and phosphate pt now on sub Q insulin s/p Bicarbonate 100 mg IV 1 given cont. Zosyn 3.375 mg IV every 6 hours as continues to be febrile reglan ACHS for possible gastroparesis -> pt improved on reglan BMP, magnesium and phosphate levels every 4 hours Vital signs every 4 hours Strict I and O's advance diet as tolerated, pt inconsistently eating currently DVT prophylaxis with Lovenox Activity bed rest with bathroom privileges (2) Sepsis Status: Acute Problem Text: UA clear with no e/o infection CXR clear with no e/o infection Blood cultures NGTD cont. Zosyn 3.375 mg IV every 6 hours for empiric antibiotic treatment. Pt remains febrile so will cont. zosyn as white count improved will cont. to monitor as pt again febrile (3) Hyperkalemia Status: Resolved Problem Text: RESOLVED will cont. to monitor (4) Dehydration Status: Acute Problem Text: Dehydration, most likely secondary to volume loss secondary to DKA pt appears adequately hydrated though inconsistent PO intake currently (5) RAMOS (acute kidney injury) Status: Resolved Problem Text: RESOLVED Monitor BUN/creatinine Repeat BMP in 4 hours (6) Anemia Status: Acute Problem Text: History of chronic anemia of unknown etiology will cont. to monitor (7) Diabetic gastroparesis Status: Chronic Problem Text: -will cont. to monitor (8) Diabetic neuropathy Status: Chronic Problem Text: will cont. to monitor Plan/VTE VTE Prophylaxis Ordered?: Yes Disposition pending clinical improvement and consistent eating VS, I&O, 24H, Fishbone Vital Signs/I&O Vital Signs Date Time Temp Pulse Resp B/P (MAP) Pulse Ox O2 Delivery O2 Flow Rate FiO2 02/16/19 12:00 100.2 80 18 164/91 (115) 99 02/14/19 09:45 Room Air I&O- Last 24 Hours up to 6 AM 02/16/19 05:59 Intake Total 2640 ml Output Total 3150 ml Balance -510 ml Laboratory Data 24H LABS Laboratory Tests 2 02/15/19 15:50: Bedside Glucose (Misc Panel) 312H 02/15/19 20:22: Bedside Glucose (Misc Panel) 316H 02/16/19 04:43: Nucleated Red Blood Cells % (auto) 0.0, Anion Gap 2L, Glomerular Filtration Rate > 60.0, Estimated Mean Plasma Glucose 200H, Hemoglobin A1c 8.6, Blood Urea Nitrogen 18, Creatinine 1.30, Sodium Level 141, Potassium Level 4.0, Chloride Level 106, Carbon Dioxide Level 33H, Calcium Level 8.6 02/16/19 07:26: Bedside Glucose (Misc Panel) 176H 02/16/19 11:14: Bedside Glucose (Misc Panel) 184H CBC/BMP Laboratory Tests 02/16/19 04:43 Red Blood Count 3.09 L, Mean Corpuscular Volume 86.7, Mean Corpuscular Hemoglobin 29.1, Mean Corpuscular Hemoglobin Concent 33.6, Red Cell Distribution Width 12.7, Calcium Level 8.6 Microbiology Microbiology 02/14/19 Blood Culture - Preliminary, Resulted No Growth after 48 hours. All Specime... JAZMINE ANN MD Feb 16, 2019 13:30
[2019-02-16 16:00] VITALS: BP 164/83
[2019-02-16 20:00] VITALS: BP 172/96
[2019-02-16] MEDS: LEVEMIR (INSULIN DETEMIR) 1 UNITS/0.01ML SC SCH (20:47)
[2019-02-17] VITALS: BP 137/77
[2019-02-17] MEDS: PIPERACILLIN/TAZOBACTAM SOD 3.375 GM in D5W MINI-BAG PLUS 50 ML IV SCH ×4 (00:58→18:05)
[2019-02-17 04:00] VITALS: BP 159/99
[2019-02-17 04:00] LABS: HEMATOCRIT 29.3 % (42.0-52.0); HEMOGLOBIN 9.9 g/dl (13.5-17.5); MEAN CORPUSCULAR HEMOGLOBIN 28.9 pg (27.0-33.0); MEAN CORPUSCULAR HGB CONC 33.8 g/dl (32.0-36.5); MEAN CORPUSCULAR VOLUME 85.4 fl (80.0-96.0); PLATELET COUNT, AUTOMATED 168 10^3/uL (150-450); RED BLOOD COUNT 3.43 10^6/uL (4.30-6.10); WHITE BLOOD COUNT 8.4 10^3/uL (4.0-10.0)
[2019-02-17 04:27] LABS: BLOOD UREA NITROGEN 15 MG/DL (7-18); CALCIUM LEVEL 8.8 MG/DL (8.5-10.1); CARBON DIOXIDE LEVEL 32 MEQ/L (21-32); CHLORIDE LEVEL 104 MEQ/L (98-107); CREATININE FOR GFR 1.17 MG/DL (0.70-1.30); GLOMERULAR FILTRATION RATE > 60.0 (>60); GLUCOSE, FASTING 138 MG/DL (70-100); SODIUM LEVEL 138 MEQ/L (136-145)
[2019-02-17] MEDS: ONDANSETRON 4MG/2ML VIAL (J2405) IV PRN (06:12)
--- NOTE | 2019-02-17 07:20 | IPNPDOC ---
Date Seen The patient was seen on 02/17/19. Progress Note Subjective: Patient seen and examined at bedside. Pt c/o loose stools last night, on zosyn, but no source of infection. Unable to keep both po liquid and solid diet due to intractable nausea without vomiting, already on reglan for gastroparesis.denies abdominal pain. c/o of hospital food and unable to eat the mashed potatoes and vegetable last night. Tried macaroni and cheese,but unable to tolerate. Tmax 101.6,but denies chills, sob, cough, abd pain, urinary frequency, dysuria urgency. infectious workup negative. zosyn continued empirically due to fever, but white count normal. Objective Physical Examination vitals pls see below General Exam: Positive: Alert, Cooperative, No Acute Distress Chest Exam: Positive: Clear to auscultation, Normal air movement Heart Exam: Positive: Rate Normal, Normal S1, Normal S2 Abdomen Exam: Positive: Normal bowel sounds, Soft, Tenderness (minimal tenderness to deep palpation) Extremity Exam: Positive: Normal pulses; Negative: Edema Skin Exam: Positive: Nl turgor and temperature; Negative: Rash, Breakdown Neuro Exam: Positive: Other (no focal deficits appreciated) Psych Exam: Positive: Mental status NL, Oriented x 3, Other (depressed mood) laboratory data, imaging studies, microbiology: pls see below Assessment /Plan 33 years old white male with past medical history of insulin-dependent diabetes mellitus type I, also history of opiate addiction and methadone presented initially to OSH with N/V and chest pain. Pt received 3L and then left AMA and presented to [facility] with lethargy. Found to be in DKA with AGAP 20, +ketones. Pt started on insulin drip per DKA protocal. Pt also started on zosyn for concern for infection given elevated WBC, tachycardia. CXR clear as well as clear UA. Blood cultures no growth to date. Pt transitioned to sub Q insulin but not eating consistently due to ongoing N/V. On presentation pt also with elevated K to 7.5 which resolved with fluids and insulin. Pt states he's feeling better but still with some fever and N/V. Suspect possible viral etiology for ongoing fever, N/V vs. gastroparesis. Will cont. zosyn given fevers and resolving white count. N/V improving with reglan. Problems DKA (diabetic ketoacidoses), resolved Status: Acute Problem Text: Admitted initially to medical ICU with telemetry supplemented the electrolytes as needed including potassium and phosphate pt now on sub Q insulin s/p Bicarbonate 100 mg IV 1 given cont. Zosyn 3.375 mg IV every 6 hours as continues to be febrile Tmax 101.6 02/16/19 reglan ACHS for possible gastroparesis -> pt improved on reglan s/p BMP, magnesium and phosphate levels every 4 hours standard Vital signs per protocol Strict I and O's advance diet as tolerated, pt inconsistently eating currently DVT prophylaxis with Lovenox Activity as tolerated Diabetic Gastroparesis reglan ACHS for possible gastroparesis -> pt improved on reglan Unable to keep both po liquid and solid diet due to intractable nausea without vomiting, already on reglan for gastroparesis.denies abdominal pain. c/o of hospital food and unable to eat the mashed potatoes and vegetable last night. Tried macaroni and cheese,but unable to tolerate. advised to keep to small frequent meals about 6x daily and may try domperidone. SIRS Status: Acute 02/16/19 Tmax 101.6,but denies chills, sob, cough, abd pain, urinary frequency, dysuria urgency. infectious workup negative. zosyn continued empirically due to fever, but white count normal. UA clear with no e/o infection CXR clear with no e/o infection Blood cultures NGTD cont. Zosyn 3.375 mg IV every 6 hours for empiric antibiotic treatment. Pt remains febrile so will cont. zosyn as white count improved will cont. to monitor as pt again febrile Hyperkalemia Status: Resolved Problem Text: RESOLVED will cont. to monitor Dehydration Status: Acute Problem Text: Dehydration, most likely secondary to volume loss secondary to DKA pt appears adequately hydrated though inconsistent PO intake currently RAMOS (acute kidney injury) Status: Resolved Problem Text: RESOLVED Monitor BUN/creatinine Repeat BMP in 4 hours Anemia Status: Acute Problem Text: History of chronic anemia of unknown etiology will cont. to monitor Diabetic neuropathy Status: Chronic Problem Text: will cont. to monitor Plan/VTE VTE Prophylaxis Ordered?: Yes disposition: medically stable for transfer to medical surgical floor. VS, I&O, 24H, Fishbone Vital Signs/I&O Vital Signs Date Time Temp Pulse Resp B/P (MAP) Pulse Ox O2 Delivery O2 Flow Rate FiO2 02/17/19 04:00 100.3 77 18 159/99 (119) 98 02/14/19 09:45 Room Air I&O- Last 24 Hours up to 6 AM 02/17/19 06:00 Intake Total 1520 ml Output Total 1300 ml Balance 220 ml Laboratory Data 24H LABS Laboratory Tests 2 02/16/19 07:26: Bedside Glucose (Misc Panel) 176H 02/16/19 11:14: Bedside Glucose (Misc Panel) 184H 02/16/19 17:22: Bedside Glucose (Misc Panel) 427H 02/16/19 20:30: Bedside Glucose (Misc Panel) 316H 02/17/19 03:38: Nucleated Red Blood Cells % (auto) 0.0, Anion Gap 2L, Glomerular Filtration Rate > 60.0, Blood Urea Nitrogen 15, Creatinine 1.17, Sodium Level 138, Potassium Level 4.0, Chloride Level 104, Carbon Dioxide Level 32, Calcium Level 8.8, Magnesium Level 2.0 CBC/BMP Laboratory Tests 02/17/19 03:38 Red Blood Count 3.43 L, Mean Corpuscular Volume 85.4, Mean Corpuscular Hemoglobin 28.9, Mean Corpuscular Hemoglobin Concent 33.8, Red Cell Distribution Width 12.5, Calcium Level 8.8 Microbiology Microbiology 02/14/19 Blood Culture - Preliminary, Resulted No Growth after 48 hours. All Specime... TACHO LE MD Feb 17, 2019 07:14
[2019-02-17] MEDS: HumaLOG INSULIN (NovoLOG) PER UNIT SC SCH ×4 (07:30→20:31)
[2019-02-17 07:35] VITALS: BP 145/94
[2019-02-17] MEDS: DOCUSATE SODIUM 100 MG CAP PO SCH ×2 (08:28→20:40)
[2019-02-17] MEDS: METOCLOPRAMIDE INJ 10MG/2ML VIAL (J2765) IV SCH ×4 (08:44→20:39)
[2019-02-17] MEDS: METHADONE 10 MG TAB (S0109) PO SCH (08:44)
[2019-02-17] MEDS: PANTOPRAZOLE 40MG TAB (PROTONIX) PO SCH (08:45)
[2019-02-17] MEDS: amLODIPine 10 MG TAB PO SCH (08:45)
[2019-02-17] MEDS: ENOXAPARIN 40 MG/0.4 ML SYRINGE (J1650) SC SCH (09:00)
[2019-02-17 15:00] VITALS: BP 149/90
[2019-02-17] MEDS: LEVEMIR (INSULIN DETEMIR) 1 UNITS/0.01ML SC SCH (20:40)
[2019-02-17 22:00] VITALS: BP 158/82
[2019-02-18 02:00] VITALS: BP 121/76
[2019-02-18] MEDS: PIPERACILLIN/TAZOBACTAM SOD 3.375 GM in D5W MINI-BAG PLUS 50 ML IV SCH ×3 (05:16)
[2019-02-18 05:17] VITALS: BP 152/92
[2019-02-18 06:54] LABS: BASO % 0.6 % (0.0-1.0); EOS # 0.3 10^3/uL (0.0-0.50); EOS % 5.2 % (0.0-3.0); HEMOGLOBIN 9.9 g/dl (13.5-17.5); LYMPH # 1.9 10^3/uL (1.5-4.5); LYMPH % 29.9 % (24.0-44.0); MEAN CORPUSCULAR HEMOGLOBIN 29.5 pg (27.0-33.0); MEAN CORPUSCULAR HGB CONC 34.1 g/dl (32.0-36.5); MEAN CORPUSCULAR VOLUME 86.3 fl (80.0-96.0); MONO # 0.6 10^3/uL (0.0-0.8); MONO % 9.8 % (0.0-5.0); NEUTROPHILS # 3.5 10^3/uL (1.8-7.7); NEUTROPHILS % 54.3 % (36.0-66.0); PLATELET COUNT, AUTOMATED 167 10^3/uL (150-450); RED BLOOD COUNT 3.36 10^6/uL (4.30-6.10); WHITE BLOOD COUNT 6.4 10^3/uL (4.0-10.0)
[2019-02-18] MEDS ORDERED: BASA100I SC (07:15)
[2019-02-18] MEDS ORDERED: AUGM875T28 PO (07:15)
[2019-02-18 07:18] LABS: ALBUMIN 2.9 GM/DL (3.2-5.2); ALT/SGPT 10 U/L (12-78); AMYLASE 117 U/L (25-115); BILIRUBIN,TOTAL 0.4 MG/DL (0.2-1.0); BLOOD UREA NITROGEN 16 MG/DL (7-18); CALCIUM LEVEL 8.5 MG/DL (8.5-10.1); CARBON DIOXIDE LEVEL 31 MEQ/L (21-32); CHLORIDE LEVEL 107 MEQ/L (98-107); CREATININE FOR GFR 1.18 MG/DL (0.70-1.30); GLOMERULAR FILTRATION RATE > 60.0 (>60); GLUCOSE, FASTING 93 MG/DL (70-100); LIPASE 412 U/L (73-393); POTASSIUM SERUM 3.6 MEQ/L (3.5-5.1); SODIUM LEVEL 142 MEQ/L (136-145); TOTAL PROTEIN 6.3 GM/DL (6.4-8.2)
[2019-02-18] MEDS: HumaLOG INSULIN (NovoLOG) PER UNIT SC SCH (07:30)
[2019-02-18 08:32] VITALS: BP 152/92
[2019-02-18] MEDS: METOCLOPRAMIDE INJ 10MG/2ML VIAL (J2765) IV SCH (08:32)
[2019-02-18] MEDS: PANTOPRAZOLE 40MG TAB (PROTONIX) PO SCH (08:32)
[2019-02-18] MEDS: DOCUSATE SODIUM 100 MG CAP PO SCH (08:32)
[2019-02-18] MEDS: amLODIPine 10 MG TAB PO SCH (08:32)
[2019-02-18] MEDS: ENOXAPARIN 40 MG/0.4 ML SYRINGE (J1650) SC SCH ×2 (08:33→08:38)
[2019-02-18] MEDS: METHADONE 10 MG TAB (S0109) PO SCH (08:33)
[2019-02-18 10:38] LABS: ERYTHROCYTE SEDIMENTATION RATE 32 mm/hr (0-15)
--- NOTE | 2019-02-18 15:16 | DS.PDOC ---
Discharge Summary General Date of Admission Feb 14, 2019 at 05:39 Date of Discharge February 18, 2019 Discharge Summary DISCHARGE DIAGNOSES: Medical Noncompliance DKA Diabetic Gastroparesis SIRS Fever of Unkown Origin Hyperkalemia Dehydration RAMOS (acute kidney injury) Anemia Diabetic neuropathy DISCHARGE MEDICATIONS: PLS SEE BELOW HISTORY OF PRESENTING ILLNESS 33 years old white male with past medical history of insulin-dependent diabetes mellitus type I, also history of opiate addiction and methadone presented initially to OSH with N/V and chest pain. Pt received 3L and then left AMA and presented to [facility] with lethargy. Found to be in DKA with AGAP 20, +ketones. Pt started on insulin drip per DKA protocal. Pt also started on zosyn for concern for infection given elevated WBC, tachycardia. CXR clear as well as clear UA. Blood cultures no growth to date. Pt transitioned to sub Q insulin but not ea ting consistently due to ongoing N/V. On presentation pt also with elevated K to 7.5 which resolved with fluids and insulin. Pt states he's feeling better but still with some fever and N/V. Suspect possible viral etiology for ongoing fever, N/V vs. gastroparesis. Will cont. zosyn given fevers and resolving white count. N/V improving with reglan. HOSPITAL COURSE: DKA (diabetic ketoacidoses), resolved Admitted initially to medical ICU with telemetry supplemented the electrolytes as needed including potassium and phosphate pt now on sub Q insulin s/p Bicarbonate 100 mg IV 1 given s/p empiric Zosyn 3.375 mg IV every 6 hours due to fever Tmax 101.6 02/16/19, which the pt refused to have evaluated despite abd pain/vomiting reglan ACHS for possible gastroparesis -> pt improved on reglan s/p BMP, magnesium and phosphate levels every 4 hours standard Vital signs per protocol Strict I and O's advance diet as tolerated, pt inconsistently eating currently DVT prophylaxis with Lovenox Activity as tolerated Pt was not compliant with fever workup and refused respiratory panel, ct abd/pelvis, repeat ua. Therefore, pt discharged on empiric po abx to complete a full course. Diabetic Gastroparesis reglan ACHS which relieved some symptoms Unable to keep both po liquid and solid diet due to intractable nausea without vomiting, already on reglan for gastroparesis.denies abdominal pain. c/o of h ospital food and unable to eat the mashed potatoes and vegetable last night. Tried macaroni and cheese,but unable to tolerate. advised to keep to small frequent meals about 6x daily and may try domperidone. SIRS Status: Acute 02/16/19 Tmax 101.6,but denies chills, sob, cough, abd pain, urinary frequency, dysuria urgency. infectious workup negative. zosyn continued empirically due to fever, but white count normal. UA clear with no e/o infection CXR clear with no e/o infection Blood cultures NGTD s/p Zosyn 3.375 mg IV every 6 hours for empiric antibiotic treatment. Pt was not compliant with fever workup and refused respiratory panel, ct abd/pelvis, repeat ua. Therefore, pt discharged on empiric po abx for gram negative coverage to complete a full course. Hyperkalemia Status: Resolved Problem Text: RESOLVED will cont. to monitor Dehydration Status: Acute Problem Text: Dehydration, most likely secondary to volume loss secondary to DKA pt appears adequately hydrated though inconsistent PO intake currently RAMOS (acute kidney injury) Status: Resolved Problem Text: RESOLVED Monitor BUN/creatinine Repeat BMP in 4 hours Anemia Status: Acute Problem Text: History of chronic anemia of unknown etiology will cont. to monitor Diabetic neuropathy Status: Chronic Problem Text: will cont. to monitor Plan/VTE VTE Prophylaxis Ordered?: Yes DISCHARGE PHYSICAL EXAMINATION: vitals pls see below General Exam: Positive: Alert, Cooperative, No Acute Distress Chest Exam: Positive: Clear to auscultation, Normal air movement Heart Exam: Positive: Rate Normal, Normal S1, Normal S2 Abdomen Exam: Positive: Normal bowel sounds, Soft, Tenderness (minimal tenderness to deep palpation) Extremity Exam: Positive: Normal pulses; Negative: Edema Skin Exam: Positive: Nl turgor and temperature; Negative: Rash, Breakdown Neuro Exam: Positive: Other (no focal deficits appreciated) Psych Exam: Positive: Mental status NL, Oriented x 3, Other (depressed mood) laboratory data, imaging studies, microbiology: pls see below TIME SPENT ON DISCHARGE 32 MINUTES Vital Signs/I&Os Vital Signs Date Time Temp Pulse Resp B/P (MAP) Pulse Ox O2 Delivery O2 Flow Rate FiO2 02/18/19 08:32 94 152/92 02/18/19 05:17 98.6 14 99 02/14/19 09:45 Room Air I&O- Last 24 Hours up to 6 AM 02/18/19 06:00 Intake Total 920 ml Balance 920 ml Laboratory Data Labs 24H Laboratory Tests 2 02/17/19 17:01: Bedside Glucose (Misc Panel) 228H 02/17/19 20:21: Bedside Glucose (Misc Panel) 187H 02/18/19 01:17: Bedside Glucose (Misc Panel) 306H 02/18/19 02:39: Bedside Glucose (Misc Panel) 251H 02/18/19 05:15: Bedside Glucose (Misc Panel) 124H 02/18/19 06:43: Immature Granulocyte % (Auto) 0.2, White Blood Count 6.4, Red Blood Count 3.36L, Hemoglobin 9.9L, Hematocrit 29.0L, Mean Corpuscular Volume 86.3, Mean Corpuscular Hemoglobin 29.5, Mean Corpuscular Hemoglobin Concent 34.1, Red Cell Distribution Width 12.7, Platelet Count 167, Neutrophils (%) (Auto) 54.3, Lymphocytes (%) (Auto) 29.9, Monocytes (%) (Auto) 9.8H, Eosinophils (%) (Auto) 5.2H, Basophils (%) (Auto) 0.6, Neutrophils # (Auto) 3.5, Lymphocytes # (Auto) 1.9, Monocytes # (Auto) 0.6, Eosinophils # (Auto) 0.3, Basophils # (Auto) 0.0, Nucleated Red Blood Cells % (auto) 0.0, Erythrocyte Sedimentation Rate 32H, Anion Gap 4L, Glomerular Filtration Rate > 60.0, Blood Urea Nitrogen 16, Crea tinine 1.18, Sodium Level 142, Potassium Level 3.6, Chloride Level 107, Carbon Dioxide Level 31, Calcium Level 8.5, Aspartate Amino Transf (AST/SGOT) 10, Alanine Aminotransferase (ALT/SGPT) 10L, Alkaline Phosphatase 62, Total Bilirubin 0.4, Total Protein 6.3L, Albumin 2.9L, C-Reactive Protein, Quant itative 0.80H, Albumin/Globulin Ratio 0.85L, Amylase Level 117H, Lipase 412H CBC/BMP Laboratory Tests 02/18/19 06:43 Red Blood Count 3.36 L, Mean Corpuscular Volume 86.3, Mean Corpuscular Hemoglobin 29.5, Mean Corpuscular Hemoglobin Concent 34.1, Red Cell Distribution Width 12.7, Neutrophils (%) (Auto) 54.3, Lymphocytes (%) (Auto) 29.9, Monocytes (%) (Auto) 9.8 H, Eosinophils (%) (Auto) 5.2 H, Basophils (%) (Auto) 0.6, Neutrophils # (Auto) 3.5, Lymphocytes # (Auto) 1.9, Monocytes # (Auto) 0.6, Eosinophils # (Auto) 0.3, Basophils # (Auto) 0.0, Calcium Level 8.5, Aspartate A gricel Transf (AST/SGOT) 10, Alanine Aminotransferase (ALT/SGPT) 10 L, Alkaline Phosphatase 62, Total Bilirubin 0.4, Total Protein 6.3 L, Albumin 2.9 L FSBS Laboratory Tests Test 02/17/19 17:01 02/17/19 20:21 02/18/19 01:17 02/18/19 02:39 Range/Units Bedside Glucose (Misc Panel) 228 187 306 251 70-105 MG/DL Test 02/18/19 05:15 Range/Units Bedside Glucose (Misc Panel) 124 70-105 MG/DL Microbiology Microbiology 02/14/19 Blood Culture - Preliminary, Resulted No Growth after 72 hours. All specime... Discharge Medications Scheduled Amoxicillin/Potassium Clav (Augmentin 875-125 Tablet) 1 Each Tablet, 1 TAB PO BID Insulin Glargine,Hum.rec.anlog (Basaglar Kwikpen U-100) 100 Unit/1 Ml Insuln.pen, 18 UNIT SC QHS Insulin Lispro (Admelog) 100 Unit/1 Ml Vial, 1 DOSE SC WM, (Reported) PER SLIDING SCALE Lisinopril (Lisinopril) 5 Mg Tablet, 5 MG PO DAILY, (Reported) Methadone HCl (Methadone HCl) 10 Mg/1 Ml Oral.conc, 115 MG PO DAILY, (Reported) Pantoprazole Sodium (Pantoprazole Sodium) 40 Mg Tablet.dr, 40 MG PO DAILY, (Reported) Scheduled PRN Ondansetron (Ondansetron Odt) 4 Mg Tab.rapdis, 4 MG PO Q6H PRN for NAUSEA OR VOMITING, (Reported) Miscellaneous Medications [Pharmacy Comment] , (Reported) VERIFIED ALL MEDICATIONS WITH PHARMACY EXCEPT METHADONE Allergies Coded Allergies: No Known Allergies (Verified , 10/07/11) TACHO LE MD Feb 18, 2019 11:40
== END 2019-02-18 08:45 | disposition home or self-care (01) | DRG 48 ==
LOC: M ED 02:41 → M ED INP 05:39 → M ICU 09:56 → M MS5PR 02-17 15:10
PROVIDERS: ADMIT Internal Medicine; ATTEND General Practice
DX: E10.43 Type 1 diabetes mellitus with diabetic autonomic (poly)neuropathy (principal); N17.9 Acute kidney failure, unspecified; R65.10 Systemic inflammatory response syndrome (SIRS) of non-infectious origin without acute organ dysfunction; E87.5 Hyperkalemia; F11.20 Opioid dependence, uncomplicated; K31.84 Gastroparesis; E10.10 Type 1 diabetes mellitus with ketoacidosis without coma; D64.9 Anemia, unspecified; E86.0 Dehydration; Z79.4 Long term (current) use of insulin; Z79.899 Other long term (current) drug therapy; Z90.49 Acquired absence of other specified parts of digestive tract; Z91.19 Patient's noncompliance with other medical treatment and regimen

== ENCOUNTER 2022-11-12 20:09 | Emergency (ER) | payer OTHER, MEDICAID ==
[~2022-11-12 20:09] MED LIST changes: -ELIQ5TAB PO; -LANTINJ4 SC
[2022-11-12 20:10] VITALS: BP 149/92
[2022-11-12 21:09] LABS: BASO % 0.8 % (0.0-1.0); EOS # 0.3 10^3/uL (0.0-0.5); EOS % 5.6 % (0.0-3.0); HEMATOCRIT 23.2 % (42.0-52.0); HEMOGLOBIN 7.2 g/dl (13.5-17.5); LYMPH # 1.4 10^3/uL (1.5-5.0); LYMPH % 27.4 % (24.0-44.0); MEAN CORPUSCULAR HEMOGLOBIN 26.6 pg (27.0-33.0); MEAN CORPUSCULAR VOLUME 85.6 fl (80.0-96.0); MONO # 0.6 10^3/uL (0.0-0.8); MONO % 11.1 % (2.0-8.0); NEUTROPHILS # 2.9 10^3/uL (1.5-8.5); NEUTROPHILS % 54.5 % (36.0-66.0); PLATELET COUNT, AUTOMATED 451 10^3/uL (150-450); RED BLOOD COUNT 2.71 10^6/uL (4.30-6.10); WHITE BLOOD COUNT 5.2 10^3/uL (4.0-10.0)
[2022-11-12 21:20] LABS: INR 0.95; PROTHROMBIN TIME 12.9 SECONDS (12.5-14.5)
[2022-11-12 21:21] LABS: PARTIAL THROMBOPLASTIN TIME 30.3 SECONDS (24.8-34.2)
[2022-11-12 21:30] LABS: BLOOD UREA NITROGEN 29 MG/DL (9-23); CALCIUM LEVEL 8.4 MG/DL (8.5-10.1); CARBON DIOXIDE LEVEL 25 MMOL/L (20-31); CHLORIDE LEVEL 104 MMOL/L (98-107); CREATININE FOR GFR 0.81 MG/DL (0.70-1.30); GLOMERULAR FILTRATION RATE > 60.0 (>60); GLUCOSE, FASTING 265 MG/DL (60-100); POTASSIUM SERUM 5.2 MMOL/L (3.5-5.1); SODIUM LEVEL 135 MMOL/L (136-145)
[2022-11-13] MEDS ORDERED: LANTINJ4 SC ×2 (18:58)
[2022-11-14] MEDS ORDERED: ELIQ5TAB PO (17:17)
== END 2022-11-12 22:37 | disposition home or self-care (01) ==
LOC: M ED 20:09
DX: I82.403 Acute embolism and thrombosis of unspecified deep veins of lower extremity, bilateral (principal); D64.9 Anemia, unspecified; E11.9 Type 2 diabetes mellitus without complications; I10 Essential (primary) hypertension; E78.5 Hyperlipidemia, unspecified; F11.10 Opioid abuse, uncomplicated; Z79.4 Long term (current) use of insulin; Z79.899 Other long term (current) drug therapy

== ENCOUNTER → 2022-11-12 | Outpatient (CLI) | payer OTHER, MEDICAID ==
[~2022-11-12] MED LIST changes: +AUGM875T28 PO; +BASA100I SC; +ELIQ5TAB PO; +LANTINJ4 SC; -LISI-542 PO; +LISI5TAB11 PO; +PANT40TA29 PO; +PHARMACY COMMENT
== END ==
LOC: M RAD 12:47
PROVIDERS: ATTEND Physician Assistant
DX: M79.89 Other specified soft tissue disorders (principal); E87.5 Hyperkalemia; D50.9 Iron deficiency anemia, unspecified; L03.116 Cellulitis of left lower limb; I82.412 Acute embolism and thrombosis of left femoral vein; I82.411 Acute embolism and thrombosis of right femoral vein; M85.862 Other specified disorders of bone density and structure, left lower leg

== ENCOUNTER 2022-11-13 15:45 | Observation (INO) | payer MEDICAID, OTHER ==
[~2022-11-13] VITALS: Ht 198.1 cm; Wt 77.3 kg
[2022-11-13] MEDS ORDERED: DEXTROSE 50% 50ML SYRINGE IV PRN (17:25)
[2022-11-13] MEDS ORDERED: MOM 30ML SUSPENSION UDC PO PRN (17:25)
[2022-11-13] MEDS ORDERED: ACETAMINOPHEN TAB 650MG DOSE (2X325MG) PO PRN (17:25)
[2022-11-13] MEDS ORDERED: GLUCAGON INJ 1MG VIAL SC PRN (17:25)
[2022-11-13] MEDS ORDERED: GLUCOSE 4GM CHEW TABLET PO PRN (17:25)
[2022-11-13] MEDS ORDERED: INSULIN LISPRO (NovoLOG) PER UNIT SC SCH ×2 (17:30→21:00)
[2022-11-13 17:43] LABS: BASO # 0.1 10^3/uL (0.0-0.2); EOS # 0.3 10^3/uL (0.0-0.5); EOS % 5.8 % (0.0-3.0); HEMATOCRIT 24.8 % (42.0-52.0); HEMOGLOBIN 7.7 g/dl (13.5-17.5); LYMPH # 1.4 10^3/uL (1.5-5.0); LYMPH % 27.4 % (24.0-44.0); MEAN CORPUSCULAR HEMOGLOBIN 26.6 pg (27.0-33.0); MEAN CORPUSCULAR VOLUME 85.5 fl (80.0-96.0); MONO # 0.5 10^3/uL (0.0-0.8); MONO % 10.3 % (2.0-8.0); NEUTROPHILS # 2.7 10^3/uL (1.5-8.5); NEUTROPHILS % 54.9 % (36.0-66.0); PLATELET COUNT, AUTOMATED 442 10^3/uL (150-450)
[2022-11-13 17:53] LABS: INR 0.89; PROTHROMBIN TIME 12.2 SECONDS (12.5-14.5)
[2022-11-13 17:54] LABS: PARTIAL THROMBOPLASTIN TIME 31.6 SECONDS (24.8-34.2)
[2022-11-13 18:04] LABS: RSV AMPLIFICATION NEGATIVE (NEGATIVE)
[2022-11-13 18:14] LABS: LIPASE 29 U/L (12-53)
[2022-11-13 18:16] LABS: IRON (FE) 17 UG/DL (65-175); TOTAL IRON BINDING CAPACITY 281 UG/DL (250-425)
[2022-11-13 18:22] LABS: ALBUMIN 2.3 G/DL (3.2-5.2); ALKALINE PHOSPHATASE 134 U/L (46-116); ALT/SGPT 9 U/L (7.0-40); AST/SGOT 12 U/L (<34); BILIRUBIN,DIRECT < 0.1 MG/DL (<0.4); BILIRUBIN,TOTAL 0.2 MG/DL (0.3-1.2); BLOOD UREA NITROGEN 26 MG/DL (9-23); CALCIUM LEVEL 8.9 MG/DL (8.5-10.1); CARBON DIOXIDE LEVEL 26 MMOL/L (20-31); CHLORIDE LEVEL 101 MMOL/L (98-107); CREATININE FOR GFR 0.76 MG/DL (0.70-1.30); FERRITIN 61.2 NG/ML (10.5-307.3); GLOMERULAR FILTRATION RATE > 60.0 (>60); GLUCOSE, FASTING 409 MG/DL (60-100); POTASSIUM SERUM 4.9 MMOL/L (3.5-5.1); SODIUM LEVEL 135 MMOL/L (136-145); TOTAL PROTEIN 6.2 G/DL (5.7-8.2)
[2022-11-13 18:25] VITALS: BP 155/94
[2022-11-13] MEDS ORDERED: LANTINJ4 SC ×2 (18:58)
[2022-11-13] MEDS ORDERED: HOME MED LIST COMPLETE! XX SCH (19:00)
[2022-11-13] MEDS ORDERED: ONDANSETRON 4MG ORAL DISINTEGRATING TAB PO PRN (19:10)
[2022-11-13] MEDS ORDERED: INSULIN LISPRO (NovoLOG) PER UNIT SC ONE (19:15)
[2022-11-13] MEDS ORDERED: DOCUSATE SODIUM 100MG CAPSULE PO SCH (21:00)
[2022-11-13] MEDS ORDERED: LEVEMIR (INSULIN DETEMIR) 1 UNITS/0.01ML SC SCH (21:00)
[2022-11-14] MEDS ORDERED: lisinopriL 5 MG TAB PO SCH (09:00)
[2022-11-14] MEDS ORDERED: LEVEMIR (INSULIN DETEMIR) 1 UNITS/0.01ML SC SCH (09:00)
[2022-11-14] MEDS ORDERED: APIXABAN 5 MG TAB (ELIQUIS) PO SCH (09:00)
[2022-11-14] MEDS ORDERED: ELIQ5TAB PO (17:17)
== END 2022-11-13 19:47 | disposition left against medical advice (07) ==
LOC: M ED 15:45 → M ED INP 17:23 → ENRESERV 18:40 → M ED INP 19:27
PROVIDERS: ADMIT Student in an Organized Health Care Education/Training Program; ATTEND Student in an Organized Health Care Education/Training Program
DX: I82.403 Acute embolism and thrombosis of unspecified deep veins of lower extremity, bilateral (principal); D64.9 Anemia, unspecified; E10.40 Type 1 diabetes mellitus with diabetic neuropathy, unspecified; K31.84 Gastroparesis; Z79.4 Long term (current) use of insulin; Z79.899 Other long term (current) drug therapy; Z87.891 Personal history of nicotine dependence; Z99.3 Dependence on wheelchair; Z79.891 Long term (current) use of opiate analgesic
CPT/HCPCS: 36415; 71045; 80053; 82248; 82728; 83550; 83605; 83690; 85025; 85046; 85384; 85610; 85730; 86850; 86920; 87631; 93005; 93041; 99284; J1815